=== PATIENT | male | born 1950 | race Caucasian/White ===

== ENCOUNTER 2016-04-25 09:16 | Emergency (ER) | payer MEDICARE, MEDICAID ==
[~2016-04-25] VITALS: Ht 175.3 cm; Wt 94.2 kg
[~2016-04-25 09:16] MED LIST: ALLO300T2 PO; ASPI325T4 PO; BUSP10TA PO; CLO15CR1 TP; FENO145T25 PO; FURO40TA4 PO; GABA300C16 PO; HYDR-3671; HYDR100T7 PO; INSU100C3; INSU100C5 INJ; INSU100V19 SQ; POTA20TA15 PO; RIFA300C PO; TRAZ300T15 PO; ZOC20 PO; ZOLP10TA PO
[2016-04-25 09:21] VITALS: Ht 175.3 cm; Wt 94.2 kg
[2016-04-25] MEDS ORDERED: SOD CHLORIDE 0.9% 1,000 ML IV ONE (10:00)
[2016-04-25] MEDS ORDERED: IBUPROFEN 600 MG TAB PO ONE (10:00)
[2016-04-25] MEDS ORDERED: LANT3I SC (10:33)
[2016-04-25 11:42] VITALS: BP 136/75; PULSE 76; RESP 16; TEMP 98.1
[2016-04-25] MEDS ORDERED: TYL500 PO (11:49)
[2016-04-25] MEDS ORDERED: SOD CHLORIDE 0.9% 500 ML IV ONE (12:00)
--- NOTE | 2016-04-25 12:44 | ERD ---
ER Documentation Chief Complaint Date/Time DATE: 04/25/16 TIME: 12:36 Chief Complaint here for eval of chiquis diabetic foot, worsen last week HPI 65-year-old male came to the ER because he was told by his primary care physician Dr. Bard garza to coming get IV fluids. He is a dialysis patient as dialysis on Wednesday was seen Wednesday. He also has diabetic chronic foot ulcerations that one of them is gotten better in the last week on the right foot. He is artery established care with the vascular surgeon who intends to do a vascular procedure we put some wire into his groin this . States that he has mild pain in his feet all the time but does not increase significantly. He is able to ambulate without difficulty. ROS All systems reviewed and are negative except as per history of present illness. Medications Home Meds Active Scripts Acetaminophen* (Tylenol*) 500 Mg Tab, 500 MG PO Q4H Y for MILD PAIN LEVEL 1-3, # 20 TAB Prov:RICARDO PUENTE DO 04/25/16 Reported Medications Insulin Glargine* (Lantus*) 100 Unit/Ml Soln, 50 UNIT SC BID, #1 VIAL 04/25/16 Aspirin* (Aspirin*) 325 Mg Tablet, 325 MG PO DAILY 07/11/12 Fenofibrate Nanocrystallized* (Tricor*) 145 Mg Tablet, 145 MG PO DAILY 05/31/12 Trazodone Hcl* (Trazodone Hcl*) 300 Mg Tablet, 300 MG PO DAILY 05/31/12 Simvastatin (Simvastatin) 20 Mg Tablet, 20 MG PO DAILY 05/31/12 Gabapentin* (Gabapentin*) 300 Mg Capsule, 300 MG PO TID 05/31/12 Buspirone Hcl (Buspirone Hcl) 10 Mg Tablet, 10 MG PO DAILY 05/31/12 Zolpidem Tartrate* (Ambien*) 10 Mg Tablet, 10 MG PO DAILY 05/31/12 Allopurinol* (Allopurinol*) 300 Mg Tablet, 300 MG PO DAILY 05/31/12 Rifampin* (Rifadin*) 300 Mg Capsule, 300 MG PO BID 05/17/11 Hydralazine Hcl* (Hydralazine Hcl*) 100 Mg Tablet, 100 MG PO DAILY 05/12/11 Clotrimazole (Clotrim) 15 Gm Cr, 15 GM TP DAILY 05/12/11 Potassium Chloride* (K-Dur*) 20 Meq Tab.prt.sr, 20 MEQ PO DAILY 03/24/11 Furosemide (Lasix) 40 Mg Tab, 40 MG PO DAILY 03/24/11 Discontinued Reported Medications Insulin Glargine,Hum.rec.anlog (Lantus) 100 U/Ml Vial, 40 SQ BID 07/11/12 Insulin Aspart (Novolog) 100 U/Ml Cartridge 05/12/11 Insulin Glargine,Hum.rec.anlog (Lantus) 100 U/Ml Cartridge, 80 INJ QAM 03/24/11 Hydralazine Hcl* (Apresoline*) 25 Mg Tab 03/24/11 Allergies Allergies: Coded Allergies: No Known Drug Allergy (Verified Allergy, Unknown, 02/24/16) PMhx/Soc History of Surgery: Yes (AV fistula.) Anesthesia Reaction: No Hx Neurological Disorder: No Hx Respiratory Disorders: No Hx Cardiac Disorders: Yes (htn, cad, chf) Hx Psychiatric Problems: No Hx Miscellaneous Medical Probl: Yes (dm) Hx Alcohol Use: No Hx Substance Use: No Hx Tobacco Use: No Smoking Status: Never smoker Physical Exam Vitals Vital Signs Date Time Temp Pulse Resp B/P Pulse Ox O2 Delivery O2 Flow Rate FiO2 04/25/16 11:42 98.1 76 16 136/75 99 Room Air 04/25/16 09:21 98.1 94 18 133/72 99 Physical Exam Const: [] No distress Head: Atraumatic Eyes: Normal Conjunctiva Cardio: Regular rate and rhythm, no murmurs Skin: No petechiae or rashes Back: No midline or flank tenderness Ext: Bilateral leg changes of venous stasis with mild erythema. There is no swelling and no calor. Patient does have the same pink color on his feet with missing toenail and right great toe and mild ulceration. As these findings on bilateral feet. He does however have posterior tibial pedis pulse on the right foot and posterior tibial and dorsalis pedis on the left. Capillary refill in all toes is less than 1 second. No findings of necrosis, purulence, calor. Also does not have evidence of cold feet and either feed as a fever the same temperature as the rest of his legs. Neur: Awake and alert and oriented 3, no focal deficits Psych: Normal Mood and Affect Results 24 hrs Current Medications Medications (Trade) Dose Ordered Sig/Luke Route PRN Reason Start Time Stop Time Status Last Admin Dose Admin Sodium Chloride (NS) 1,000 ml @ 1,000 mls/hr Q1H ONCE IV 04/25/16 10:00 04/25/16 11:52 DC 04/25/16 11:24 Ibuprofen 600 mg 600 mg ONCE ONCE PO 04/25/16 10:00 04/25/16 10:01 DC 04/25/16 10:07 Sodium Chloride (NS) 500 ml @ 500 mls/hr Q1H ONCE IV 04/25/16 12:00 04/25/16 12:59 Procedures/MDM 65-year-old male with peripheral vascular disease sent here for fluid administration by Dr. Bard garza. As he is a dialysis patient I gave him 500 mL of fluid. On examination of his feet reveal no emergent conditions. He does have good follow-up in fact she has procedure on which may improve his peripheral vascular disease. This point that I discharged him and tell him to not miss his appointment on for definitive management. Primary care follow-up in 2-3 days as well. He also been given a Tylenol emergency room for his mild foot pain. Departure Diagnosis: Primary Impression: PVD (peripheral vascular disease) Condition: Stable Patient Instructions: Peripheral Vascular Disease Additional Instructions: Call your primary care doctor TOMORROW for an appointment during the next 2-3 days.See the doctor sooner or return here if your condition worsens before your appointment time. RICARDO PUENTE DO Apr 25, 2016 12:44
== END 2016-04-25 12:03 | disposition home or self-care (01) ==
LOC: E/R 09:16
DX: I73.9 Peripheral vascular disease, unspecified (principal); I10 Essential (primary) hypertension; I25.10 Atherosclerotic heart disease of native coronary artery without angina pectoris; I50.9 Heart failure, unspecified; E11.9 Type 2 diabetes mellitus without complications; Z79.4 Long term (current) use of insulin; Z79.82 Long term (current) use of aspirin
CPT/HCPCS: 99284; J7030; J7040

== ENCOUNTER 2016-07-07 06:32 | Day surgery (SDC) | payer MEDICARE, MEDICAID ==
[2016-06-30 11:48] LABS: ADD SCAN DIFF NO
[2016-06-30 11:54] LABS: BASOPHILS % 0.2 % (0.0-2.0); EOSINOPHILS # 0.1 10^3/ul (0.0-0.5); EOSINOPHILS % 1.1 % (0.0-7.0); HEMATOCRIT 34.8 % (42.0-52.0); HEMOGLOBIN 11.1 g/dl (14.0-18.0); LYMPHOCYTES # 1.2 10^3/ul (0.8-2.9); LYMPHOCYTES % 12.4 % (15.0-51.0); MEAN CORPUSCULAR HEMOGLOBIN 30.2 pg (29.0-33.0); MEAN CORPUSCULAR HGB CONC 31.9 g/dl (32.0-37.0); MEAN CORPUSCULAR VOLUME 94.6 fl (82.0-101.0); MEAN PLATELET VOLUME 10.7 fl (7.4-10.4); MONOCYTE # 0.7 10^3/ul (0.3-0.9); MONOCYTES % 7.5 % (0.0-11.0); NEUTROPHIL # 7.2 10^3/ul (1.6-7.5); NEUTROPHILS % 78.3 % (39.0-77.0); PLATELET COUNT 151 10^3/UL (140-415); RED BLOOD COUNT 3.68 10^6/ul (4.70-6.10); WHITE BLOOD COUNT 9.2 10^3/ul (4.8-10.8)
[2016-06-30 12:05] LABS: INR 1.18; PROTIME 15.1 Sec (12.2-14.2); PT RATIO 1.2
[2016-06-30 12:07] LABS: PARTIAL THROMBOPLASTIN TIME 33.7 Sec (25.0-35.0)
[2016-06-30 12:17] LABS: CALCIUM 9.2 mg/dl (8.4-10.2); CREATININE 9.92 mg/dl (0.61-1.24); POTASSIUM 4.5 mmol/L (3.5-5.1)
--- NOTE | 2016-06-30 12:40 | RADRPT ---
PROCEDURE: XR Chest. CLINICAL INDICATION: Preoperative. TECHNIQUE: Two views. Frontal and lateral. COMPARISON: 09/07/2013. FINDINGS: The lungs are clear. The heart is mildly enlarged. There is calcification in the aorta consistent with atherosclerosis. There is no pleural effusion. There is no pneumothorax. IMPRESSION: 1. Mild cardiomegaly. 2. Atherosclerosis. 3. Clear lungs. RPTAT: QQ .Timothy Duarte MD, MD Date Time Electronically viewed and signed by .Timothy Duarte MD, MD on 06/30/2016 12:39 .R/
--- NOTE | 2016-06-30 16:58 | RADRPT ---
Vent Rate: 95 bpm RR Interval: 0 msec VT Interval: 298 msec QRS Duration: 124 msec QT Interval: 370 msec QTC Interval: 464 msec P-R-T [place]: -86 - -53 - 9 degrees Sinus rhythm, 1st degree AV block Left axis deviation Right bundle branch block Possible Lateral infarct , age undetermined Inferior infarct , age undetermined Abnormal ECG Electronically Signed By: Toni Sherwood [id number]
--- NOTE | 2016-07-06 13:07 | PREOPHP ---
DATE OF ADMISSION: 07/07/2016 HISTORY OF PRESENT ILLNESS: This 65-year-old patient is admitted for elective cataract surgery of t he left eye. The patient has had significant deterioration of vision over the last couple months in volving his left eye. The patient has a history of a 16-year history of diabetes mellitus and has s econdary chronic renal failure and is on hemodialysis. CURRENT MEDICATIONS: Include: 1. Naproxen. 2. Zolpidem. 3. Hydrocodone. 4. Renvela. 5. Victoza. 6. Insulin. ALLERGIES: THERE ARE NO KNOWN ALLERGIES. PHYSICAL EXAMINATION: The visual acuity best corrected is 20/60 in the right eye and 20/400 in the left eye. Slit lamp examination reveals a narrowing of the anterior chamber angle due to progressio n of nuclear sclerotic cataracts in both eyes. The examination of the lens reveals anterior cortica l nuclear sclerotic and posterior subcapsular cataract changes in both eyes. Applanation tonometry is 16 mmHg in both eyes. 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 DIAGNOSIS: Cataract, left eye. PLAN: Cataract extraction with lens implant, left eye. The risks and alternatives of the surgery h ave been discussed with the patient as well as the hope for improvement of visual acuity leading to a greater ability to perform activities of daily living. The patient understands this and agrees to proceed with surgery. Dictated By: SHANNAN LAWS/RAYSHAWN Conf#: [id number] DID#: [id number]
[~2016-07-07] VITALS: Ht 176.5 cm; Wt 93.4 kg
[2016-07-07] VITALS (7 sets, daily range): BP systolic 109–126; BP diastolic 58–74; PULSE 84–89; RESP 13–19; Ht 176.5 cm; Wt 93.4 kg
[~2016-07-07 06:32] MED LIST changes: +CIPROFLOXACIN 0.3% 2.5 ML OPH OPER SCH; +CYCLOPENTOLATE/PHENYLEPH 2 ML OPH OPER SCH; +DICLOFENAC 0.1% 2.5 ML OPH OPER SCH; -HYDR-3671; -INSU100C3; -INSU100C5 INJ; -INSU100V19 SQ; +LANT3I SC; +TROPICAMIDE 1% 2 ML OPH OPER SCH; +TYL500 PO
[2016-07-07] MEDS ORDERED: CIPROFLOXACIN 0.3% 2.5 ML OPH OPER SCH (07:30)
[2016-07-07] MEDS ORDERED: CYCLOPENTOLATE/PHENYLEPH 2 ML OPH OPER SCH (07:30)
[2016-07-07] MEDS ORDERED: DICLOFENAC 0.1% 2.5 ML OPH OPER SCH (07:30)
[2016-07-07] MEDS ORDERED: TROPICAMIDE 1% 2 ML OPH OPER SCH (07:30)
[2016-07-07] MEDS ORDERED: LIRA0.6P2 SQ (07:49)
[2016-07-07] MEDS ORDERED: INSU300I SQ (07:49)
[2016-07-07] MEDS ORDERED: LIDOCAINE 4% (MPF) 5 ML INJ ONE (09:13)
[2016-07-07] MEDS ORDERED: CEFAZOLIN 1 GM INJ ONE (09:13)
[2016-07-07] MEDS ORDERED: CARBACHOL 0.01% 1.5 ML OPH INJ ONE (09:13)
[2016-07-07] MEDS ORDERED: GENTAMICIN 80 MG INJ ONE (09:13)
[2016-07-07] MEDS ORDERED: EPINEPHrine 1 MG INJ ONE (09:13)
[2016-07-07] MEDS ORDERED: DEXAMETHASONE 4 MG/ML 1 ML INJ ONE (09:13)
[2016-07-07] MEDS ORDERED: HYALURONATE/CHONDROITIN 1ML OPH INJ ONE (09:14)
[2016-07-07] MEDS ORDERED: CARBACHOL 0.01% 1.5 ML OPH INJ IO ONE (09:15)
[2016-07-07] MEDS ORDERED: DEXAMETHASONE 4 MG/ML 1 ML INJ INJ ONE (09:15)
[2016-07-07] MEDS ORDERED: HYALURONATE/CHONDROITIN 1ML OPH INJ IO ONE (09:15)
[2016-07-07] MEDS ORDERED: CEFAZOLIN 1 GM INJ INJ ONE (09:15)
[2016-07-07] MEDS ORDERED: PROPOFOL 20 ML ONE (09:21)
--- NOTE | 2016-07-07 12:48 | OPR ---
DATE OF OPERATION: 07/07/2016 PREOPERATIVE DIAGNOSIS: Cataract, left eye. POSTOPERATIVE DIAGNOSIS: Cataract, left eye. PROCEDURE PERFORMED: Cataract extraction with lens implant, left eye. SURGEON: Shannan Killian MD ANESTHESIOLOGIST: Dhruv Smith DO ANESTHESIA: Monitored. PROCEDURE: The patient was brought to the operating room and placed on the table with an IV in plac e and the patient attached to an hospital monitor. Oxygen was given via face mask. After some intravenous sedation was administered, local anesthesia was given using Xylocaine 2% with epinephrine, mixed with Marcaine 0.5%. This was given in a lid block and retrobulbar injection. The patient was then prepped and draped in the usual sterile manner. A wire lid speculum was inserted between the lids of the left eye. A Superblade was used to enter th e anterior chamber at the corneoscleral limbus at the 10:30 o'clock position. A separate incision wa s made using a 3.0-mm keratome which entered the corneoscleral junction at the 12 o'clock position. Due to the fact that the pupil had only dilated to 4.5 mm, it was decided to attempt to expand the p upil space in order to safely remove the cataract. An I-Ring was inserted into the anterior chamber attempting to retract the iris at the pupil margin; however, difficulty was encountered placing the I-Ring at the pupil and therefore, it was removed from the eye and instead 2 additional paracentesis incisions were made at the 7 and 5 o'clock positions. Through these 2 openings as well as the 2 pr ior paracentesis incisions, 4 silicone hooks were inserted and used to retract the iris. Through this 3-mm opening, an irrigating cystitome was introduced into the anterior chamber. The roxanne mber was filled with Viscoat and an anterior capsulotomy was performed. Balanced salt solution was t hen used for hydrodissection of the lens. A phacoemulsification handpiece was then brought into the field and introduced into the anterior chamber. The lens nucleus was emulsified using a deep groove and cracking the nucleus into quadrants. Following this, each quadrant was aspirated and emulsified at the pupillary margin. After this was completed, the irrigation/aspiration handpiece was brought to the field, introduced i nto the posterior chamber, and the lens cortical material was removed. When this was completed, ramos tional Viscoat was injected into the anterior and posterior chambers. The 3-mm opening had its internal lips enlarged, and then the posterior chamber intraocular lens tiana suring 23.0 diopters (Bausch and Lomb model LI61AO) was then injected into the posterior chamber usi ng the lens injector system. After the lens was inserted, the 4 silicone hooks were then removed fr om the anterior chamber. After the leading haptic was introduced into the capsular bag and the lens optic was present in the center of the eye, the injector was removed and the trailing haptic was gr asped with non-toothed forceps and introduced into the capsular fold superiorly. A Sinskey hook was then used to rotate the intraocular lens so that the lips were oriented in the horizontal meridian. One 10-0 nylon suture was placed across the wound. Prior to tying, the irrigation/aspiration handpiece was reintroduced into the anterior chamber to re move the Viscoat. Miochol was instilled to constrict the pupil, and then the 10-0 nylon suture was t ied. The ends were cut short and then the knot was buried. Then, 0.5 mL of dexamethasone and 0.5 mL of Ancef were injected into the sub-Tenon space in the infe rior fornix. Ciloxan drops were then placed on the surface of the eye. The speculum was removed and a patch was applied. The patient then left the operating room in satisfactory condition. Dictated By: SHANNAN LAWS/RAYSHAWN Conf#: [id number] DID#: [id number]
== END 2016-07-07 11:10 | disposition home or self-care (01) ==
LOC: SDS 06:32
PROVIDERS: ATTEND Ophthalmology
DX: H25.12 Age-related nuclear cataract, left eye (principal); E11.9 Type 2 diabetes mellitus without complications
CPT/HCPCS: 66984; 82962; 84132; J0171; J0690; J1100; J1580; V2632; 71020; 80048; 85025; 85610; 85730; 93005

== ENCOUNTER 2016-10-15 07:18 | Day surgery (SDC) | payer MEDICARE, MEDICAID ==
[2016-10-15] VITALS (8 sets, daily range): BP systolic 115–140; BP diastolic 61–81; PULSE 0–87; RESP 9–18; Ht 175.3 cm; Wt 202.0 kg
[~2016-10-15] VITALS: Ht 175.3 cm; Wt 202.0 kg
[~2016-10-15 07:18] MED LIST changes: -ALLO300T2 PO; +ALPR0.5T6 PO; +ASC250 PO; -ASPI325T4 PO; -BUSP10TA PO; +CARBACHOL 0.01% 1.5 ML OPH INJ ONE; +CEFAZOLIN 1 GM INJ ONE; +CHOL400T10 PO; -CLO15CR1 TP; +DEXAMETHASONE 4 MG/ML 1 ML INJ ONE; +EPINEPHrine 0.1 MG/ML SYG ONE; -FENO145T25 PO; -FURO40TA4 PO; +GENTAMICIN 80 MG INJ ONE; +HYALURONATE/CHONDROITIN 1ML OPH INJ ONE; +HYDR-902 PO; -HYDR100T7 PO; +INSU300I SQ; -LANT3I SC; +LEVO250T9 PO; +LIDOCAINE 4% (MPF) 5 ML INJ ONE; +LIRA0.6P2 SQ; +MULTI PO; +NAPR-685 PO; -POTA20TA15 PO; -RIFA300C PO; +SERT25TA PO; +SEVE800T10 PO; -TRAZ300T15 PO; -TYL500 PO; +VITA150T PO; -ZOC20 PO; -ZOLP10TA PO
[2016-10-15] MEDS ORDERED: DEXTROSE 50% 50 ML SYRINGE ONE (08:32)
[2016-10-15] MEDS ORDERED: DEXTROSE 50% 50 ML SYRINGE IV ONE ×2 (08:42→09:00)
[2016-10-15] MEDS ORDERED: DEXAMETHASONE 4 MG/ML 1 ML INJ INJ ONE (09:30)
[2016-10-15] MEDS ORDERED: CARBACHOL 0.01% 1.5 ML OPH INJ IO ONE (09:30)
[2016-10-15] MEDS ORDERED: CEFAZOLIN 1 GM INJ INJ ONE (09:30)
[2016-10-15] MEDS ORDERED: HYALURONATE/CHONDROITIN 1ML OPH INJ IO ONE (09:30)
[2016-10-15] MEDS ORDERED: PROPOFOL 20 ML ONE (09:39)
[2016-10-15] MEDS ORDERED: MIDAZOLAM 1 MG/ML 2 ML INJ ONE (09:39)
[2016-10-15] MEDS ORDERED: ONDANSETRON 4 MG INJ IV PRN (10:00)
[2016-10-15] MEDS ORDERED: EPHEDrine SULFATE 50 MG/5 ML SYG IV PRN (10:00)
[2016-10-15] MEDS ORDERED: LABETALOL HCL 20MG INJ IV PRN (10:00)
[2016-10-15] MEDS ORDERED: hydrALAzine 20 MG INJ IV PRN (10:00)
[2016-10-15] MEDS ORDERED: morphine (1 MG/ML) 10ML SYRINGE IV PRN (10:00)
--- NOTE | 2016-10-15 11:32 | OPR ---
Date/Time of Note Date/Time of Note DATE: 10/15/16 TIME: 11:26 Operative Report Procedure Date: Oct 15, 2016 Preoperative Diagnosis cataract od Operation Performed Cataract extraction with lens implant right eye Anesthesia: MAC Anesthesiologist: BECKY JOSEPH MD Estimated Blood Loss: none Grafts/Implants Posterior chamber lens implant Complications: None Pt Condition Post Procedure: stable Disposition: other (Home) Operative\Procedure Findings Patient was brought to the operating room and positioned appropriately attached to some intravenous sedation was patient received local anesthesia using Xylocaine and lidocaine 4% given the patient was then prepped and draped in the usual sterile manner and a speculum was inserted between the lids of the right eye a Superblade was used to make 2 paracentesis incisions one in the nasal and one in the temporal quadrant through clear cornea adjacent to the corneal scleral limbus. It was noted that the pupil had not adequately dilated and therefore 4 silicone hooks were inserted into the anterior chamber and used to grasp the pupillary iris and retract it to enlarge the pupil. Following this a 3.0 mm keratome was used to enter a stepped scleral corneal incision at the superior corneoscleral limbus into the anterior chamber. Through this opening and irrigating cystotome was introduced which was then and the anterior chamber was then filled with disc and anterior capsulotomy was performed using the cystotome and following this balanced salt solution was used for hydrodissection of the lens nucleus phacoemulsification was then performed on the lens nucleus first creating grooves and then quadrant removal prior to removing the entire lens. This is been completed epinuclear material and lens cortical material were aspirated from the posterior chamber when this had been completed additional disc disc was injected into the anterior chamber and then the primary incision was slightly enlarged and through this incision post a posterior chamber intraocular lens measuring 23.0 (Bausch & Lomb model LI 61 was inserted into the posterior chamber the trailing haptic was placed in appropriate position and following this the disc of this was evacuated from the anterior chamber. 1 10-0 nylon suture was placed across the wound prior to tying of the floor and silicone hooks were removed from the eye. The suture was then tied the ends were cut short and the knot was buried half a cc of Ancef and a half a cc set of dexamethasone was then injected into the subcu space in the inferior conjunctival fornix the speculum was removed ciprofloxacin drops were placed on the surface of the eye and the eye was patient left the operating room in satisfactory condition and dictation SHANNAN TORREZ MD Oct 15, 2016 11:32
[2016-10-16] MEDS ORDERED: CEPH-443 PO (15:09)
[2016-10-16] MEDS ORDERED: SULF1TAB31 PO (15:09)
== END 2016-10-15 13:10 | disposition home or self-care (01) ==
LOC: SDS 07:18
PROVIDERS: ATTEND Ophthalmology
DX: H26.9 Unspecified cataract (principal); E11.9 Type 2 diabetes mellitus without complications; I12.0 Hypertensive chronic kidney disease with stage 5 chronic kidney disease or end stage renal disease; N18.6 End stage renal disease; Z99.2 Dependence on renal dialysis; E66.01 Morbid (severe) obesity due to excess calories; Z68.44 Body mass index [BMI] 60.0-69.9, adult
CPT/HCPCS: 66984; 82962; 84132; J0171; J0690; J1100; J1580; J2250; V2632

== ENCOUNTER 2016-10-16 13:12 | Emergency (ER) | payer MEDICARE, MEDICAID ==
[~2016-10-16] VITALS: Ht 175.3 cm; Wt 90.9 kg
[~2016-10-16 13:12] MED LIST changes: -CARBACHOL 0.01% 1.5 ML OPH INJ ONE; -CEFAZOLIN 1 GM INJ ONE; -CIPROFLOXACIN 0.3% 2.5 ML OPH OPER SCH; -CYCLOPENTOLATE/PHENYLEPH 2 ML OPH OPER SCH; -DEXAMETHASONE 4 MG/ML 1 ML INJ ONE; -DICLOFENAC 0.1% 2.5 ML OPH OPER SCH; -EPINEPHrine 0.1 MG/ML SYG ONE; -GENTAMICIN 80 MG INJ ONE; -HYALURONATE/CHONDROITIN 1ML OPH INJ ONE; -LIDOCAINE 4% (MPF) 5 ML INJ ONE; -TROPICAMIDE 1% 2 ML OPH OPER SCH
[2016-10-16 13:14] VITALS: Ht 175.3 cm; Wt 90.9 kg
--- NOTE | 2016-10-16 14:39 | ERD ---
ER Documentation Chief Complaint Date/Time DATE: 10/16/16 TIME: 14:36 Chief Complaint 9/10 right knee pain x 1 week after fall HPI 65-year-old male, we are chilled dependent who presents emergency room with right knee pain status post fall 1 week ago. He states that he fell onto his knee with direct trauma to the patella. He had a small associated abrasion. He was at dialysis today and told to come to the emergency room for evaluation. Patient describes moderate throbbing pain that is worse with movement. He states that his referring provider gave him an antibiotic today. He denies any fevers. ROS All systems reviewed and are negative except as per history of present illness. Medications Home Meds Active Scripts Cephalexin* (Keflex*) 500 Mg Capsule, 500 MG PO QID for 7 Days, CAP Prov:RUDY CABALLERO MD 10/16/16 Sulfamethoxazole/Trimethoprim* (Bactrim Ds* Tablet) 1 Each Tablet, 1 TAB PO BID , #14 TAB Prov:RUDY CABALLERO MD 10/16/16 Hydrocodone/Acetaminophen ([place] 10-325 Tablet) 1 Each Tablet, 1 EACH PO Q4 for PAIN, #30 TAB Prov:ALBINO RIVERO 09/09/16 Levofloxacin* (Levofloxacin*) 250 Mg Tablet, 250 MG PO Q48H for 21 Days, TAB Prov:ALBINO RIVERO 09/09/16 Reported Medications Vitamin B Complex & Vit C No.4 (Super B Complex) 150 Mg Tablet, 150 MG PO DAILY , TAB 08/27/16 Ascorbic Acid (Vitamin C) 250 Mg Tab, 1000 MG PO DAILY, TAB 08/27/16 Multivitamins* (Theragran*) 1 Tab Tab, 1 TAB PO DAILY, TAB 08/27/16 Cholecalciferol* (Vitamin D*) 400 Unit Tablet, 3000 UNIT PO DAILY, TAB 08/27/16 Alprazolam* (Alprazolam*) 0.5 Mg Tablet, 0.5 MG PO Q12 Y for ANXIETY, TAB 08/27/16 Sertraline Hcl* (Zoloft*) 25 Mg Tablet, 10 MG PO, #30 TAB 08/27/16 Naproxen* (Naproxen*) 375 Mg Tablet, MG PO TID Y for PAIN, TAB 08/27/16 Sevelamer Hcl* (Renagel*) 800 Mg Tablet, 800 MG PO WITH MEALS, TAB 08/27/16 Liraglutide (Victoza 3-Jesus) 0.6 Mg/0.1 Ml Pen.injctr, 1.8 MG SQ QAM, SYR 07/07/16 Insulin Glargine,Hum.rec.anlog (Danialuandreao Solostar) 300 Unit/1 Ml Insuln.pen, 30 UNIT SQ QAM 07/07/16 Gabapentin* (Gabapentin*) 300 Mg Capsule, 300 MG PO TID 05/31/12 Allergies Allergies: Coded Allergies: No Known Drug Allergy (Verified Allergy, Unknown, 10/16/16) PMhx/Soc History of Surgery: Yes (left av-shunt. wound deridment to leg, left eye sx) Anesthesia Reaction: No Hx Neurological Disorder: No Hx Respiratory Disorders: No Hx Cardiac Disorders: Yes (CHF) Hx Psychiatric Problems: No Hx Miscellaneous Medical Probl: No Hx Alcohol Use: No Hx Substance Use: No Hx Tobacco Use: No FmHx Family History: No diabetes Physical Exam Vitals Vital Signs Date Time Temp Pulse Resp B/P Pulse Ox O2 Delivery O2 Flow Rate FiO2 10/16/16 13:14 98.4 85 102/57 85 Physical Exam General: Well developed, well nourished, no acute distress Head: Normocephalic, atraumatic. Eyes: EOM intact ENT: Moist mucous membranes Neck: Full ROM Respiratory: No respiratory distress Cardiovascular: Good capillary refil Abdominal: Nondistended : Deferred MSK: Abrasion overlying the right patella with evidence of good granulation tissue, mild surrounding erythema but no warmth or focal tenderness, full active and passive range of motion without bony abnormalities or ligamentous instability. Soft compartments. Neurologic: Alert and oriented, moving all extremities, normal speech, steady gait Skin: No rash Psych: Normal mood Results 24 hrs Current Medications Medications (Trade) Dose Ordered Sig/Luke Route PRN Reason Start Time Stop Time Status Last Admin Dose Admin Acetaminophen/ Hydrocodone Bitart ([place] (10325)) 1 tab ONCE ONCE PO 10/16/16 15:00 10/16/16 15:01 DC 10/16/16 14:54 Procedures/MDM EKG, MONITORS, & DIAGNOSTIC IMAGING: X-ray right knee: IMPRESSION: 1. Mild degenerative changes of the right knee. 2. Atherosclerosis. 3. Otherwise unremarkable study. RPTAT: QQ MEDICAL DECISION MAKING: The patient has evidence of a right knee abrasion with good granulation tissue. The erythema is likely secondary to inflammatory and healing process rather than infection. Low concern for fracture but the patient was sent for for evaluation, x-ray imaging will be obtained. I will reach out to the referring provider Dr. Moody ER COURSE: The patient is referring provider would like the patient empirically started on antibiotics given concern for infection. In my opinion the patient's knee is very consistent with regular healing process. Empiric antibiotics would be reasonable in the form of Bactrim and Keflex. The patient was given a single [place] here in the emergency room. I kept the patient and/or family informed of laboratory and diagnostic imaging results throughout the emergency room course. DISPOSITION PLAN: We discussed follow up with the patient's primary care doctor within 24 to 48 hours as needed. We also discussed return to the emergency room for worsening symptoms or worsening condition. Outpatient referral: [None required] Discharge Medications: Bactrim, Keflex Departure Diagnosis: Primary Impression: Abrasion of knee Encounter type: initial encounter Laterality: right Qualified Code: S80.211A - Abrasion of knee, right, initial encounter Additional Impression: Contusion of knee, right Condition: Stable RUDY CABALLERO MD Oct 16, 2016 14:39
--- NOTE | 2016-10-16 14:53 | RADRPT ---
PROCEDURE: Right knee radiographs. CLINICAL INDICATION: Trauma due to a fall. Right knee pain. TECHNIQUE: Three views. Frontal, lateral, and oblique. COMPARISON: No prior studies are available for comparison. FINDINGS: There is no fracture or dislocation. Vascular calcifications are present consistent with atherosclerosis. There are degenerative changes with small osteophytes arising from all 3 joint compartment margins. There is no lytic or blastic lesion. There is no radiopaque foreign body. IMPRESSION: 1. Mild degenerative changes of the right knee. 2. Atherosclerosis. 3. Otherwise unremarkable study. RPTAT: QQ .Timothy Duarte MD, MD Date Time Electronically viewed and signed by .Timothy Duarte MD, MD on 10/16/2016 14:53 .R/
[2016-10-16] MEDS ORDERED: HYDROCODONE/APAP (10/325) TAB PO ONE (15:00)
[2016-10-16] MEDS ORDERED: CEPH-443 PO (15:09)
[2016-10-16] MEDS ORDERED: SULF1TAB31 PO (15:09)
== END 2016-10-16 16:04 | disposition home or self-care (01) ==
LOC: E/R 13:12
DX: S80.01XA Contusion of right knee, initial encounter (principal); I50.9 Heart failure, unspecified; W18.39XA Other fall on same level, initial encounter; Y92.9 Unspecified place or not applicable; Z79.4 Long term (current) use of insulin
CPT/HCPCS: 73562

== ENCOUNTER 2016-11-23 09:21 | Emergency (ER) | payer MEDICARE, MEDICAID ==
[~2016-11-23] VITALS: Ht 172.7 cm; Wt 88.6 kg
[~2016-11-23 09:21] MED LIST changes: -ASC250 PO; +ASCO250T96 PO; +CEPH-443 PO; +SULF1TAB31 PO
[2016-11-23 09:34] VITALS: Ht 172.7 cm; Wt 88.6 kg
--- NOTE | 2016-11-23 10:52 | RADRPT ---
PROCEDURE: CT head without intravenous contrast CLINICAL INDICATION: Right frontal head trauma yesterday. COMPARISON: CT 03/26/2008. MR 05/14/2007. TECHNIQUE: Axial CT images from skull base to vertex with coronal and sagittal reformats. DOSE: The estimated administered radiation dose was CTDI vol = 44 mGy. DLP = 720 mGy-cm. One or mor e of the following dose reduction techniques were used: automated exposure control, adjustment of th e mA and/or kV according to patient size, or use of iterative reconstruction. FINDINGS: Parenchyma: No acute hemorrhage, large territorial infarction, or mass. Mild amount of periventricul ar and subcortical white matter hypodensity, a nonspecific finding often associated with chronic adalberto roangiopathy. Ventricles: No ventriculomegaly or ventricular effacement. Extra-axial spaces: No herniation or midline shift. Paranasal sinuses: Clear. Mastoids and middle ears: Old right canal wall down mastoidectomy and ossicular resection. Trace ri ght mastoid effusion. Left ossicular replacement prosthesis. Visualized orbits: Normal. Vessels: Moderate calcified atherosclerotic arterial plaque. Bones: Normal. No fracture. Extracranial soft tissues: Right frontal scalp hematoma measures 9 mm thick. 4 mm density within the high right parietal scalp which may represent a sebaceous cyst or small hematoma (series 2, image 2 3). Additional comment: None. IMPRESSION: Right frontal scalp hematoma without underlying fracture or acute intracranial hemorrhage. RPTAT: PP Physician Conchita Date Time Electronically viewed and signed by Physician Conchita on 11/23/2016 10:51 LG/
--- NOTE | 2016-11-23 11:13 | ERD ---
ER Documentation Chief Complaint Date/Time DATE: 11/23/16 TIME: 11:10 Chief Complaint pT WITH R FOREHEAD CONTUSION/SWELLING AFTER HITTING HEAD WITH CABINET DOOR. HPI 66-year-old male presents with right forehead injury that occurred yesterday afternoon from a cabinet door while being at dialysis. He states that he was getting up from his chair and hit the side of his head, he did not result any loss of consciousness, vomiting, visual changes, paresthesias, or headaches. He has localized pain to the area that is achy, improving. ROS All systems reviewed and are negative except as per history of present illness. Medications Home Meds Active Scripts Cephalexin* (Keflex*) 500 Mg Capsule, 500 MG PO QID for 7 Days, CAP Prov:RUDY CABALLERO MD 10/16/16 Sulfamethoxazole/Trimethoprim* (Bactrim Ds* Tablet) 1 Each Tablet, 1 TAB PO BID , #14 TAB Prov:RUDY CABALLERO MD 10/16/16 Hydrocodone/Acetaminophen (Skillman 10-325 Tablet) 1 Each Tablet, 1 EACH PO Q4 for PAIN, #30 TAB Prov:ALBINO RIVERO 09/09/16 Levofloxacin* (Levofloxacin*) 250 Mg Tablet, 250 MG PO Q48H for 21 Days, TAB Prov:ALBINO RIVERO 09/09/16 Reported Medications Vitamin B Complex & Vit C No.4 (Super B Complex) 150 Mg Tablet, 150 MG PO DAILY , TAB 08/27/16 Ascorbic Acid (Vitamin C) 250 Mg Tab, 1000 MG PO DAILY, TAB 08/27/16 Multivitamins* (Theragran*) 1 Tab Tab, 1 TAB PO DAILY, TAB 08/27/16 Cholecalciferol* (Vitamin D*) 400 Unit Tablet, 3000 UNIT PO DAILY, TAB 08/27/16 Alprazolam* (Alprazolam*) 0.5 Mg Tablet, 0.5 MG PO Q12 Y for ANXIETY, TAB 08/27/16 Sertraline Hcl* (Zoloft*) 25 Mg Tablet, 10 MG PO, #30 TAB 08/27/16 Naproxen* (Naproxen*) 375 Mg Tablet, MG PO TID Y for PAIN, TAB 08/27/16 Sevelamer Hcl* (Renagel*) 800 Mg Tablet, 800 MG PO WITH MEALS, TAB 08/27/16 Liraglutide (Victoza 3-Jesus) 0.6 Mg/0.1 Ml Pen.injctr, 1.8 MG SQ QAM, SYR 07/07/16 Insulin Glargine,Hum.rec.anlog (Danialuandreao Solostar) 300 Unit/1 Ml Insuln.pen, 30 UNIT SQ QAM 07/07/16 Gabapentin* (Gabapentin*) 300 Mg Capsule, 300 MG PO TID 05/31/12 Allergies Allergies: Coded Allergies: No Known Drug Allergy (Verified Allergy, Unknown, 10/16/16) PMhx/Soc History of Surgery: Yes (left av-shunt. wound deridment to leg, left eye sx) Anesthesia Reaction: No Hx Neurological Disorder: No Hx Respiratory Disorders: No Hx Cardiac Disorders: Yes (CHF) Hx Psychiatric Problems: No Hx Miscellaneous Medical Probl: No Hx Alcohol Use: No Hx Substance Use: No Hx Tobacco Use: No Smoking Status: Never smoker Physical Exam Vitals Vital Signs Date Time Temp Pulse Resp B/P Pulse Ox O2 Delivery O2 Flow Rate FiO2 11/23/16 09:34 97.8 75 18 127/59 100 Physical Exam General: Well-developed, well-nourished. The patient appears in no acute distress. HEENT: Head is normocephalic, right frontal hematoma approximately 4 cm with a scalp abrasion. No scleral icterus. Pupils are equal, round, and reactive. Oral mucous membranes are moist. No pharyngeal erythema. Neck: Supple. Nontender. Lungs: Clear to auscultation. Normal air movement. Heart: Regular rate and rhythm. S1 and S2 are normal. No murmurs, gallops, or rubs. Abdomen: Soft, nontender, nondistended. Bowel sounds are normoactive. Extremities: No clubbing or cyanosis. Normal pulses. Moving extremities x 4. No weakness. Neurologic: Alert and oriented 3. No focal deficits. Strength lower extremities 5 out of 5 bilaterally. Skin: Normal turgor. No rash or lesions. Results 24 hrs DIAGNOSTIC IMAGING REPORT Patient: HELLEN COOK : 1950 Age: 66 Sex: M MR #: [id number] DOS: 11/23/16 1004 Ordering MD: BRENNAN THEODORE PA-C Location: [facility] Room/Bed: PROCEDURE: CT head without intravenous contrast CLINICAL INDICATION: Right frontal head trauma yesterday. COMPARISON: CT 03/26/2008. MR 05/14/2007. TECHNIQUE: Axial CT images from skull base to vertex with coronal and sagittal reformats. DOSE: The estimated administered radiation dose was CTDI vol = 44 mGy. DLP = 720 mGy-cm. One or more of the following dose reduction techniques were used: automated exposure control, adjustment of the mA and/or kV according to patient size, or use of iterative reconstruction. FINDINGS: Parenchyma: No acute hemorrhage, large territorial infarction, or mass. Mild amount of periventricular and subcortical white matter hypodensity, a nonspecific finding often associated with chronic microangiopathy. Ventricles: No ventriculomegaly or ventricular effacement. Extra-axial spaces: No herniation or midline shift. Paranasal sinuses: Clear. Mastoids and middle ears: Old right canal wall down mastoidectomy and ossicular resection. Trace right mastoid effusion. Left ossicular replacement prosthesis. Visualized orbits: Normal. Vessels: Moderate calcified atherosclerotic arterial plaque. Bones: Normal. No fracture. Extracranial soft tissues: Right frontal scalp hematoma measures 9 mm thick. 4 mm density within the high right parietal scalp which may represent a sebaceous cyst or small hematoma (series 2, image 23). Additional comment: None. IMPRESSION: Right frontal scalp hematoma without underlying fracture or acute intracranial hemorrhage. RPTAT: PP Physician Conchita Date Time Electronically viewed and signed by Physician Conchita on 11/23/2016 10: 51 LG/ CC: BRENNAN THEODORE PA-C Procedures/MDM Medical decision m[age]-year-old male presents with a right frontal hematoma with a superficial abrasion. Patient's CT scan shows a frontal hematoma, no calvarium fracture, no intracranial hemorrhage. His neurologic status is normal, stable for discharge. Patient's blood pressure was elevated (>120/80) but appears stable without evidence of hypertension emergency or urgency. The patient was counseled about the risks of hypertension and urged to pursue outpatient monitoring and therapy within a week with their primary care physician. Departure Diagnosis: Primary Impression: Scalp hematoma Condition: Good Patient Instructions: Scalp Contusion, No Wake Up BRENNAN THEODORE PA-C Nov 23, 2016 11:13
== END 2016-11-23 11:30 | disposition home or self-care (01) ==
LOC: FTE 09:21
DX: S00.03XA Contusion of scalp, initial encounter (principal); I50.9 Heart failure, unspecified; W22.09XA Striking against other stationary object, initial encounter; Y92.9 Unspecified place or not applicable; Z79.4 Long term (current) use of insulin
CPT/HCPCS: 70450

== ENCOUNTER → 2016-11-24 | Outpatient (CLI) | payer MEDICARE, MEDICAID ==
--- NOTE | 2016-11-27 13:29 | RADRPT ---
Echocardiogram Report Patient Name: HELLEN COOK Gender: Male Date: 1950 Study Date: 24-Nov-2016 [employer]: Noel Cornejo ALESSANDRA Location: EKG Ref. Physician: ANN MARIE QUINTANILLA Quality: Technically Difficult Study Procedures: Transthoracic echocardiogram with complete 2D, M-Mode, and doppler examination. Indications: Systolic murmur. 2D/M Mode Doppler Measurement Value Normal Ranges Measurement Value Normal Ranges LVIDd 2D 4.4 3.5 - 5.6 cm KIRSTEN Vmax 0.4 cm2 LVIDs 2D 2.7 2.1 - 4.1 cm KIRSTEN VTI 0.4 cm2 FS 2D 38.1 % AV Mean Trace 2.4 m/sec LVPWd 2D 1.6 0.6 - 1.1 cm AV Mean PG 26.0 mmHg IVSd 2D 1.5 0.6 - 1.1 cm AV Peak Trace 3.4 m/sec IVS/LVPW 2D 0.9 AV Peak PG 47.0 mmHg AoR Diam 2D 3.1 2.0 - 3.7 cm AV VTI 83.7 cm LA/Ao 2D 1 0 - 1 LVOT Mean Trace 0.6 m/sec EDV 2D 86.9 cm3 LVOT Mean PG 2.0 mmHg ESV 2D 20.6 cm3 LVOT Peak Trace 0.8 m/sec LA Dimen 2D 4.0 2.3 - 4.0 cm LVOT Peak PG 2.0 mmHg LVOT Diam 1.5 cm LVOT VTI 20.4 cm LVOT Area 1.8 cm2 MV E Peak Trace 2.0 m/sec MV A Peak Trace 2.3 m/sec MV E/A 0.9 MV PHT 111.0 msec MV Peak Trace 3.0 m/sec MV Peak PG 36.0 mmHg MV Mean Trace 1.8 m/sec MV Mean PG 16.0 mmHg MV Decel Time 257 msec MV Decel Andrews 6 MV E/A 0.9 MV PHT Peak Trace 2.3 m/sec MV PHT 111.0 msec MV VTI 86.2 cm MVA PHT 2.0 cm2 MVA VTI 0.4 cm Findings Left Ventricle: Normal left ventricular systolic function. Normal left ventricular cavity size. Moderate concentric left ventricular hypertrophy. Ejection fraction is visually estimated at 5560 %. Abnormal Diastolic Function. Right Ventricle: Normal right ventricular size. Normal right ventricular systolic function. Left Atrium: There is severe enlargement of left atrium. Right Atrium: There is moderate enlargement of right atrium. Mitral Valve: Mitral valve leaflets appear moderately thickened. Moderate mitral leaflet calcification. Severe mitral annular calcification. Trace mitral regurgitation. Severe mitral stenosis. Mitral valve Max Velocity 2.99 m/sec. MaxPG 36.00 mmHg. MeanPG 16.00 mmHg. Mitral Valve Area by PHT1.98 cm2. Mitral Valve Area by Continuity0.42 cm2. Aortic Valve: Severe aortic stenosis. Aortic valve Max velocity 3.42 m/sec. Max PG 47.00 mmHg. Mean PG 24.00 mmHg. Aortic valve area 0.43 cm2. Aortic cusps appear moderately calcified. Tricuspid Valve: Normal appearance of the tricuspid valve. Unable to obtain RVSP due to minimal presence of tricuspid regurgitation. Pulmonic Valve: Pulmonic valve not well visualized. There is trace pulmonic regurgitation. Pericardium: Normal pericardium with no significant pericardial effusion. Aorta: Normal aortic root. IVC: Dilated inferior vena cava with poor inspiratory collapse consistent with elevated right atrial pressures. Conclusions 1.The left ventricle is normal in size and systolic function. 2.Estimate left ventricular ejection fraction of 55-60%. 3.Moderate concentric left ventricular hypertrophy. 4.Severe aortic stenosis. 5.Severe mitral stenosis. 6.Bi-atrial enlargement. Electronically Signed By: Kwesi Mendoza 27-Nov-2016 13:28:55 -0700 Patient Name: HELLEN COOK Study Date: 24-Nov-2016 [id number]
== END | disposition home or self-care (01) ==
LOC: EKG 12:01
PROVIDERS: ATTEND Internal Medicine
DX: R01.1 Cardiac murmur, unspecified (principal)
CPT/HCPCS: 93306

== ENCOUNTER → 2016-12-10 | Outpatient (CLI) | payer MEDICARE, MEDICAID ==
[~2016-12-10] MED LIST changes: +APRACLONIDINE 1% 0.1 ML OPH ONE; +OPHTHALMIC IRRIG SOLUTION 120 ML ONE; +PHENYLephrine 10% 5 ML OPH ONE; +PROPARACAINE 0.5% 15 ML OPH ONE; +TROPICAMIDE 1% 3 ML OPH ONE
== END | disposition home or self-care (01) ==
LOC: RAD 09:19
PROVIDERS: ATTEND Ophthalmology
DX: H26.9 Unspecified cataract (principal)
CPT/HCPCS: 66821

== ENCOUNTER 2017-03-30 12:10 | Day surgery (SDC) | payer MEDICARE, MEDICAID ==
[~2017-03-30] VITALS: Ht 175.3 cm; Wt 100.0 kg
[~2017-03-30 12:10] MED LIST changes: -APRACLONIDINE 1% 0.1 ML OPH ONE; -OPHTHALMIC IRRIG SOLUTION 120 ML ONE; -PHENYLephrine 10% 5 ML OPH ONE; -PROPARACAINE 0.5% 15 ML OPH ONE; -TROPICAMIDE 1% 3 ML OPH ONE
[2017-03-30] MEDS ORDERED: ALPR1TAB2 PO (13:22)
[2017-03-30] MEDS ORDERED: INSU300I SQ (13:23)
[2017-03-30 13:50] VITALS: Ht 175.3 cm; Wt 100.0 kg
[2017-03-30 13:52] VITALS: BP 92/53; PULSE 89; RESP 16
[2017-03-30 13:57] LABS: BASOPHIL # 0.1 10^3/ul (0.0-0.1); BASOPHILS % 0.7 % (0.0-2.0); EOSINOPHILS # 0.1 10^3/ul (0.0-0.5); EOSINOPHILS % 1.2 % (0.0-7.0); HEMATOCRIT 37.4 % (42.0-52.0); HEMOGLOBIN 11.7 g/dl (14.0-18.0); LYMPHOCYTES # 1.3 10^3/ul (0.8-2.9); LYMPHOCYTES % 18.1 % (15.0-51.0); MEAN CORPUSCULAR HEMOGLOBIN 27.5 pg (29.0-33.0); MEAN CORPUSCULAR HGB CONC 31.3 g/dl (32.0-37.0); MEAN PLATELET VOLUME 11.1 fl (7.4-10.4); MONOCYTE # 0.8 10^3/ul (0.3-0.9); NEUTROPHIL # 4.7 10^3/ul (1.6-7.5); NEUTROPHILS % 68.4 % (39.0-77.0); PLATELET COUNT 131 10^3/UL (140-415); POSITIVE DIFF @See below; RED BLOOD COUNT 4.25 10^6/ul (4.70-6.10); RED CELL DISTRIBUTION WIDTH 14.6 % (11.5-14.5); WHITE BLOOD COUNT 6.9 10^3/ul (4.8-10.8)
[2017-03-30 14:07] LABS: PROTIME 13.3 Sec (11.9-14.9)
[2017-03-30 14:13] LABS: ALBUMIN 3.8 g/dl (3.3-4.9); ALBUMIN/GLOBULIN RATIO 1.15; PARTIAL THROMBOPLASTIN TIME 35.4 Sec (25.0-35.0); TOTAL PROTEIN 7.1 g/dl (6.1-8.1)
[2017-03-30 14:26] LABS: CALCIUM 9.4 mg/dl (8.4-10.2)
[2017-03-30 14:30] LABS: CREATININE 9.63 mg/dl (0.61-1.24); POTASSIUM 5.8 mmol/L (3.5-5.1)
--- NOTE | 2017-03-30 14:40 | RADRPT ---
PROCEDURE: XR Chest 1 view. CLINICAL INDICATION: Abnormal breath sounds, preop. TECHNIQUE: Single view of the chest was obtained. COMPARISON: None. FINDINGS: The heart is large. Calcified atherosclerosis is noted in the aorta. The lungs are hypoinflated. Mi ld interstitial prominence is seen in both lungs. No consolidations are identified. No pneumothorax is seen. Osseous structures are intact. IMPRESSION: Cardiomegaly with calcified atherosclerosis in the aorta. Mild interstitial prominence in both lungs. Interstitial prominence may be chronic. Hypoinflated lungs. RPTAT: AA .Thai Stark MD, MD Date Time Electronically viewed and signed by .Thai Stark MD, on 03/30/2017 14:40 .P/
[2017-03-30] MEDS ORDERED: LIDOCAINE 1% (MDV) 20 ML INJ ONE (14:49)
[2017-03-30] MEDS ORDERED: FENTAnyl 50 MCG/ML VIAL ONE (14:50)
[2017-03-30] MEDS ORDERED: MIDAZOLAM 1 MG/ML 2 ML INJ ONE (14:50)
--- NOTE | 2017-03-30 15:49 | SIPON ---
Date/Time of Note Date/Time of Note DATE: 03/30/17 TIME: 15:48 Operative Report Preoperative Diagnosis ESRD, Diffuse chronic gangrenous changes in hands and feet Postoperative Diagnosis Same Operation/Procedure Performed Aortogram, BLE angiograms - diagnostic, catheter in left external iliac artery Surgeon see signature line registrar assistant N/A Anesthesia: moderate sedation Estimated blood loss: minimal Transfusion Required none Specimen None Grafts/Implants none Complications none ADARSH HARMON MD Mar 30, 2017 15:49
[2017-03-30] MEDS ORDERED: IODIXANOL LOCM 100 ML BTL ONE (15:53)
[2017-03-30] MEDS ORDERED: ACETAMINOPHEN 325 MG TAB PO PRN (16:00)
[2017-03-30] MEDS ORDERED: ONDANSETRON 4 MG INJ IV PRN (16:00)
[2017-03-30 16:13] VITALS: BP 111/72; PULSE 72; RESP 18
[2017-03-30 16:25] VITALS: BP 120/76; PULSE 80; RESP 20
--- NOTE | 2017-03-31 07:07 | OPR ---
DATE OF OPERATION: 03/30/2017 PREOPERATIVE DIAGNOSIS: Bilateral lower extremity gangrene. POSTOPERATIVE DIAGNOSIS: Bilateral lower extremity gangrene. PROCEDURES: 1. Aortogram. 2. Bilateral lower extremity angiograms with runoff, diagnostic. SURGEON: Adarsh Toledo MD. ANESTHESIA: Moderate sedation and local. ESTIMATED BLOOD LOSS: Minimal. COMPLICATIONS: None. SPECIMENS: None. PREOPERATIVE INDICATIONS: This is a 66-year-old gentleman with end-stage renal disease, diabetes and multiple other medical conditions who has been having diffuse gangrenous changes in the distal aspects of his body including fingers, toes and feet and penis. Previous angiogram did not demonstrate any flow limiting lesions to bilateral lower extremities. There is new concern that there may be some vascular involvement. Therefore, he presents today for bilateral lower extremity angiogram for further evaluation. The indications, risks and benefits of the procedure were discussed with the patient who understood and agreed to proceed. ANGIOGRAPHIC FINDINGS: 1. Patent infrarenal abdominal aorta without any aneurysmal changes or flow limiting lesions. 2. Patent bilateral common iliac, common internal iliac and external iliac arteries. There was noted to be significant calcifications in the bilateral internal iliac artery branches. 3. Patent right common femoral, profunda femoral and proximal superficial femoral arteries. 4. Patent left common femoral, profunda femoral and superficial femoral arteries. 5. Patent left popliteal artery that gives off patent trifurcation. 6. Patent left tibial vessels with the anterior tibial and posterior tibial arteries being the dominant flow to the foot that give off dorsalis pedis and plantar artery. However, these arteries are diffusely diminished in size. There was no good distal vessel flow to the toes or the outer surfaces of the foot. 7. Patent right common femoral, profunda femoral and superficial femoral arteries. 8. Patent right popliteal artery, which gives off a patent trifurcation. 9. On the right there is a patent posterior tibial and anterior tibial artery and a very, very diminished peroneal that may occlude more distally. The posterior tibial and anterior tibial arteries are the dominant flow to the foot via a very, very small dorsalis pedis and plantar artery. Once again, there was noted to be no good distal vessel flow to the toes and the outer surfaces of the foot. There were no flow limiting lesions throughout. There was mild disease noted in bilateral popliteal arteries but not flow limiting. DESCRIPTION OF PROCEDURE: Patient was properly identified and brought to the angiography suite and placed in the supine position. The patient's bilateral groins were prepped and draped in the usual sterile fashion. Moderate sedation was induced as needed throughout the procedure. Ultrasound was used to evaluate the right common femoral artery. It was noted to be widely patent with some calcification. Local anesthesia was injected into the skin and subcutaneous tissues. A micropuncture needle was used to access the femoral artery on the right under ultrasound guidance. A micropuncture wire was then placed. A micropuncture sheath was then advanced. An 0.035 Bentson wire was then advanced, and a short 5-Chinese sheath was placed. Right lower extremity angiogram was performed with the findings as above. Then, a flush catheter was placed in the infrarenal aorta. Aortogram was then performed with the findings as above. Using combination of an 0.035 floppy Glidewire and a flush catheter the left iliac system was selected. The catheter was placed in the left external iliac artery. Left lower extremity angiogram was then performed with the findings as above. Given these findings the wire was readvanced into the catheter and the devices were removed. A Mynx closure device was then advanced through the sheath and used for closure. It was deployed with good hemostasis and manual compression was applied for additional hemostasis. The patient tolerated the procedure well without any immediate complications. He was transferred to recovery in good condition. Dictated By: ADARSH BARRIOS/RAYSHAWN Conf#: [id number] DID#: [id number] FRANKIE
--- NOTE | 2017-03-31 07:20 | RADRPT ---
Vent Rate: 162 bpm RR Interval: 0 msec MA Interval: 0 msec QRS Duration: 140 msec QT Interval: 276 msec QTC Interval: 453 msec P-R-T [place]: 0 - 0 - -31 degrees Undetermined rhythm. Possible idioventricular Right bundle branch block Abnormal ECG Electronically Signed By: Drake Gomez [id number]
== END 2017-03-30 18:49 | disposition home or self-care (01) ==
LOC: SDS 12:10
PROVIDERS: ATTEND Surgery
DX: I96 Gangrene, not elsewhere classified (principal); L98.499 Non-pressure chronic ulcer of skin of other sites with unspecified severity; N18.6 End stage renal disease; E11.9 Type 2 diabetes mellitus without complications; I45.10 Unspecified right bundle-branch block
CPT/HCPCS: 36200; 71010; 75630; 80053; 82962; 85025; 85610; 85730; 93005; C1887; C1894; J1644; J2250; J3010; Q9967

== ENCOUNTER → 2017-04-08 | Outpatient (CLI) | END | disposition home or self-care (01) ==

== ENCOUNTER 2017-04-26 16:55 | Inpatient (IN) | END 2017-05-12 21:25 | disposition EXP | DRG 299 ==